=== PATIENT | female | born 1965 | race Caucasian/White ===

== ENCOUNTER → 2016-11-23 | Outpatient (CLI) | payer BC ==
--- NOTE | 2016-11-23 15:56 | XR ---
EXAMINATION TYPE: XR calcaneus 2V LT DATE OF EXAM: 11/23/2016 3:52 PM COMPARISON: NONE HISTORY: Left foot pain for months. TECHNIQUE: 2 views of left calcaneus are obtained. FINDINGS: There is no acute fracture or dislocation in the calcaneus. Boehler's angle is maintained. There is moderate to large size inferior calcaneal spur noted. There is mild to moderate spurring mid foot level along dorsal surface. Overlying soft tissue is unremarkable. IMPRESSION: Moderate to large inferior calcaneal spur.
== END | disposition home or self-care (01) ==
LOC: RADXRMAIN 15:39
PROVIDERS: ATTEND Family Medicine
DX: M77.32 Calcaneal spur, left foot (principal)

== ENCOUNTER → 2017-04-26 | Outpatient (CLI) | payer SELFPAY ==
--- NOTE | 2017-04-26 14:36 | MM ---
Reason for exam: screening (asymptomatic). Last mammogram was performed 1 year and 9 months ago. History: Taking hormonal contraceptives. Physical Findings: A clinical breast exam by your physician is recommended on an annual basis and results should be correlated with mammographic findings. MG Screening Mammo w CAD Bilateral CC and MLO view(s) were taken. Prior study comparison: July 22, 2015, right breast MG work up mamm w CAD RT. July 08, 2015, bilateral MG screening mammo w CAD. The breast tissue is heterogeneously dense. This may lower the sensitivity of mammography. Benign calcifications. There is chronic nodularity bilaterally. There is no dominant lesion. No significant changes when compared with prior studies. ASSESSMENT: Benign, BI-RAD 2 RECOMMENDATION: Routine screening mammogram of both breasts in 1 year.
== END | disposition home or self-care (01) ==
LOC: RADMAMWWP 07:43
PROVIDERS: ATTEND Family Medicine
DX: Z12.31 Encounter for screening mammogram for malignant neoplasm of breast (principal)

== ENCOUNTER 2018-09-28 10:34 | Day surgery (SDC) | payer BC ==
[2018-09-26 12:59] VITALS: BMI 37.5
[~2018-09-28 10:34] MED LIST: LACTATED RINGERS 1,000 ML IV SCH; LIDOCAINE 1% 20 ML VIAL (10MG/ML) FOR IV START INTRADERMA PRN
[2018-09-28 11:05] VITALS: TEMP 98.4
[2018-09-28] MEDS ORDERED: LIDOCAINE 1% INJ 10MG/ML (20 ML MDV) ONE (11:47)
[2018-09-28] MEDS ORDERED: PROPOFOL 10 MG/ML 20 ML VIAL IV ONE (11:47)
--- NOTE | 2018-09-28 12:07 | P.PCN ---
Date of Procedure: 09/28/18 Procedure(s) Performed: BRIEF HISTORY: Patient is a 53-year-old pleasant white female, scheduled for an elective colonoscopy as a part of screening for colorectal neoplasia. PROCEDURE PERFORMED: Colonoscopy. PREOPERATIVE DIAGNOSIS: Screening for colon cancer. IV sedation per Anesthesia. PROCEDURE: After informed consent was obtained, the patient, was brought into the endoscopy unit. IV sedation was administered by Anesthesia under continuous monitoring. Digital rectal examination was normal. Initially the Olympus CF- 160 flexible video colonoscope was then inserted in the rectum, gradually advanced into the cecum with [id number] difficulty. Careful examination was performed as the scope was gradually being withdrawn. Ileocecal valve and the appendiceal orifice were visualized and appeared normal. Prep was excellent. Mucosa of the cecum, ascending colon, transverse colon, descending colon, sigmoid colon, and rectum appeared normal. Retroflexion was performed in the rectum and no lesions were seen. The patient tolerated the procedure well. IMPRESSION: Normal-appearing colon from rectum to cecum with no evidence of colorectal neoplasia. RECOMMENDATIONS: Findings of this examination were discussed with the patient as well as a family. She was advised to have a repeat screening colonoscopy in 10 years.
[2018-09-28 12:24] VITALS: BP 112/87; PULSE 83; RESP 17
== END 2018-09-28 13:06 | disposition home or self-care (01) ==
LOC: ORWHC2ENDO 10:34
PROVIDERS: ATTEND Internal Medicine Gastroenterology
DX: Z12.11 Encounter for screening for malignant neoplasm of colon (principal); E66.3 Overweight; Z68.37 Body mass index [BMI] 37.0-37.9, adult; Z79.3 Long term (current) use of hormonal contraceptives
CPT/HCPCS: 81025; J2001; J2704; G0121

== ENCOUNTER → 2018-10-12 | Outpatient (CLI) | payer BC ==
--- NOTE | 2018-10-19 08:40 | MM ---
Reason for exam: screening (asymptomatic). Last mammogram was performed 1 year and 6 months ago. History: Taking hormonal contraceptives. MG Screening Mammo w CAD Bilateral CC and MLO view(s) were taken. Prior study comparison: April 26, 2017, bilateral MG screening mammo w CAD. July 22, 2015, right breast MG work up mamm w CAD RT. The breast tissue is heterogeneously dense. This may lower the sensitivity of mammography. There are benign-appearing bilateral breast calcification. No suspicious abnormality. No significant changes when compared with prior studies. ASSESSMENT: Benign, BI-RAD 2 RECOMMENDATION: Routine screening mammogram of both breasts in 1 year.
== END | disposition home or self-care (01) ==
LOC: RADMAMWWP 08:31
PROVIDERS: ATTEND Family Medicine
DX: Z12.31 Encounter for screening mammogram for malignant neoplasm of breast (principal)
CPT/HCPCS: 77067

== ENCOUNTER → 2020-08-06 | Outpatient (CLI) | payer BC ==
--- NOTE | 2020-08-07 11:40 | MR ---
Left foot MRI with and without contrast HISTORY: Dorsal foot pain, soft tissue mass Multiplanar multisequence and postcontrast images obtained through the left foot following 11.5 cc Ga davist IV There is an overlying marker at the site of patient's symptomatology. No plain film supplied for ashley elation. There is hypertrophic change present at the site of patient's symptomatology at the intertarsal joint s, marginal spurring with subchondral reactive marrow signal changes, probable geode formation presen t. Subcutaneous fat shows some local immediate signal on T1, increased signal in T2-weighted sequence s likely reflecting some local edema, some edema changes are present along the dorsum of the foot. Arevalo bcutaneous edema also present in the distal leg. Ankle mortise is normal. Achilles tendon is intact. Plantar aponeurosis is intact. Degenerative changes also present at the tarsometatarsal joints of the second digit, third digit. The peroneal longus and brevis tendons, flexor and extensor tendons are i ntact. There is a plantar calcaneal spur. No evident ligamentous disruption. No sizable joint effusio n. impression: Osteoarthritis, hypertrophic changes noted the site of patient's overlying marker, there is likely local soft tissue edema present.
== END | disposition home or self-care (01) ==
LOC: RADMRIMAIN 14:33
PROVIDERS: ATTEND Podiatrist Foot & Ankle Surgery
DX: M19.072 Primary osteoarthritis, left ankle and foot (principal)
CPT/HCPCS: 73720; A9585

== ENCOUNTER → 2020-12-31 | Outpatient (CLI) | payer BC | END | disposition home or self-care (01) | LOC: LABWHC1 16:18 | PROVIDERS: ATTEND Family Medicine | DX: U07.1 COVID-19 (principal) | CPT/HCPCS: U0003; C9803; U0005 ==

== ENCOUNTER → 2022-02-14 | Outpatient (CLI) | payer BC ==
--- NOTE | 2022-02-16 10:44 | MM ---
Reason for Exam: Screening (asymptomatic). Last mammogram was performed 3 year(s) and 4 month(s) ago. Patient History: Menarche at age 14. First Full-Term at age 21. Premenopausal. Currently using Hormonal Contraceptives. Risk Values: Jesi 5 year model risk: 0.8%. NCI Lifetime model risk: 6.1%. Film Views: Bilateral CC views were taken. Left MLO view was taken. 1 view(s) taken. Right MLO views were taken. 2 view(s) taken. Prior Study Comparison: 07/22/2015 Right Diagnostic Mammogram, [facility]. 04/26/2017 Bilateral Screening Mammogram, [facility]. 10/12/2018 Bilateral Screening Mammogram, [facility]. Tissue Density: There are scattered fibroglandular densities. Findings: Analyzed By CAD. Chronic nodularity bilaterally with some fluctuation. A central left CC nodule is more pronounced. This is an overall benign pattern. Precautionary 6 month follow up recommended. Overall Assessment: Probably benign, BI-RAD 3 Management: Diagnostic Mammogram of the left breast in 6 months.
== END | disposition home or self-care (01) ==
LOC: RADMAMWWP 14:55
PROVIDERS: ATTEND Family Medicine
DX: Z12.31 Encounter for screening mammogram for malignant neoplasm of breast (principal)
CPT/HCPCS: 77067

== ENCOUNTER → 2023-02-20 | Outpatient (CLI) | payer BC ==
--- NOTE | 2023-02-21 08:18 | MM ---
Reason for Exam: Screening (asymptomatic). Last screening mammogram was performed 12 month(s) ago. Patient History: Menarche at age 14. First Full-Term at age 21. Postmenopausal. Hormonal Contraceptives, starting at age 22 for 30 years. Risk Values: Jesi 5 year model risk: 0.8%. NCI Lifetime model risk: 6.0%. Prior Study Comparison: 04/26/2017 Bilateral Screening Mammogram, [facility]. 10/12/2018 Bilateral Screening Mammogram, [facility]. 02/14/2022 Bilateral MG screening mammo w CAD, [facility]. Tissue Density: There are scattered fibroglandular densities. Findings: Analyzed By CAD. There is no suspicious group of microcalcifications or new suspicious mass in either breast. Overall Assessment: Negative, BI-RAD 1 Management: Screening Mammogram of both breasts in [address] [facility] will attempt to contact patient to return for supplemental views and ultrasound if indicated. Patient should continue monthly self-breast exams. A clinical breast exam by your physician is recommended on an annual basis. This exam should not preclude additional follow-up of suspicious palpable abnormalities. Note on Jesi scores and lifetime risk: 1. A Jesi score greater than 3% is considered moderate risk. If this is the case, consider specialist referral to assess eligibility for a risk reducing agent. 2. If overall lifetime risk for the development of breast cancer is 20% or higher, the patient may qualify for future screening with alternating mammogram and breast MRI. Electronically signed and approved by: Hernandez Diamond DO
== END | disposition home or self-care (01) ==
LOC: RADMAMWWP 07:10
PROVIDERS: ATTEND Family Medicine
DX: Z12.31 Encounter for screening mammogram for malignant neoplasm of breast (principal); Z78.0 Asymptomatic menopausal state
CPT/HCPCS: 77067

== ENCOUNTER → 2023-03-23 | Outpatient (CLI) | payer BC ==
--- NOTE | 2023-03-23 19:19 | US ---
EXAMINATION TYPE: US extremity nonvasc complete LT DATE OF EXAM: 03/23/2023 COMPARISON: Prior radiograph 11/23/2016 CLINICAL INDICATION: Female, 57 years old with history of M79.89 Soft tissue mass; TECHNIQUE: Targeted ultrasound along the dorsum of the left mid to hindfoot at the site of visible a nd palpable abnormality. FINDINGS: At the level of the third intertarsal joint, there is focal severe synovial thickening and capsular d istention. A prominent vessel courses over this thickened synovium. There is underlying extensive deg enerative irregularity of the underlying bone. No other solid or cystic lesion seen. IMPRESSION: The patient's dorsal mid to hindfoot protuberance corresponds to fairly severe synovial proliferation distending the capsule of the third intertarsal joint. Correlate for a moderate to severe focal syn ovitis secondary to underlying osteoarthritic change. Consider radiographic correlation. No adventiti al bursa, ganglion cyst, or significant joint effusion in this location.
== END | disposition home or self-care (01) ==
LOC: RADUSWWP 12:38
PROVIDERS: ATTEND Podiatrist Foot & Ankle Surgery
DX: M79.89 Other specified soft tissue disorders (principal)

== ENCOUNTER → 2024-03-11 | Outpatient (CLI) | payer BC ==
--- NOTE | 2024-03-14 09:14 | MM ---
Reason for Exam: Screening (asymptomatic). Last mammogram was performed 1 year(s) and 1 month(s) ago. Patient History: Menarche at age 14. First Full-Term at age 21. Postmenopausal. Hormonal Contraceptives, starting at age 22 for 30 years. Risk Values: Jesi 5 year model risk: 0.9%. NCI Lifetime model risk: 5.9%. Prior Study Comparison: 10/12/2018 Bilateral Screening Mammogram, [facility]. 02/14/2022 Bilateral MG screening mammo w CAD, [facility]. 02/20/2023 Bilateral MG screening mammo w CAD, [facility]. Tissue Density: The breasts are heterogeneously dense, which may obscure small masses. Findings: Analyzed By CAD. There is no suspicious group of microcalcifications or new suspicious mass in either breast. Overall Assessment: Benign, BI-RAD 2 Management: Screening Mammogram of both breasts in 1 year. . Patient should continue monthly self-breast exams. A clinical breast exam by your physician is recommended on an annual basis. This exam should not preclude additional follow-up of suspicious palpable abnormalities. Note on Jesi scores and lifetime risk: 1. A Jesi score greater than 3% is considered moderate risk. If this is the case, consider specialist referral to assess eligibility for a risk reducing agent. 2. If overall lifetime risk for the development of breast cancer is 20% or higher, the patient may qualify for future screening with alternating mammogram and breast MRI. Electronically signed and approved by: Kameron Estrada M.D. Radiologis
== END | disposition home or self-care (01) ==
LOC: RADMAMWWP 06:53
PROVIDERS: ATTEND Family Medicine
DX: Z12.31 Encounter for screening mammogram for malignant neoplasm of breast (principal); Z78.0 Asymptomatic menopausal state
CPT/HCPCS: 77063; 77067